=== PATIENT | male | born 1980 ===

== ENCOUNTER → 2019-04-19 17:14 | Outpatient (CLI) | payer OTHER, SELFPAY | PROVIDERS: Visit Provider Physician Assistant | DX: L02.91 Cutaneous abscess, unspecified (principal) | CPT/HCPCS: 87070; 87075; 87147; 87205 ==

== ENCOUNTER 2024-04-05 08:26 | Day surgery (SDC) | payer OTHER, SELFPAY ==
[2024-04-05] MEDS: LACTATED RINGERS 1,000 ML 100 ML IV (09:16)
[2024-04-05 09:18] VITALS: BP 116/74; PULSE 69; RESP 16; TEMP 36; O2SAT 97
--- NOTE | 2024-04-05 09:30 | PM.HP.1 ---
History of Present Illness History of Present Illness Date Patient Seen: 04/05/24 Time Patient Seen: 09:30 Chief complaint: Screening Colonoscopy Narrative: Isael is a 43-year-old man here for screening colonoscopy. He has never had a colonoscopy before. No known family history of colon cancer. [facility] Social History Smoking Status: Never smoker alcohol intake: current Meds Home Medications and Allergies Home Medications Medication Instructions Recorded Confirmed Type emtricitabine 200 mg-tenofovir 1 tab PO DAILY 04/19/19 04/19/19 History disoproxil fumarate 300 mg tablet (Truvada) mupirocin 2 % topical ointment 1 applic topical TID #30 grams 04/19/19 04/19/19 Rx peg 3350-sod sulf,ysjzs-czc-ltp 1,000 ml PO DIRECTED #2,000 mL 02/24/24 Rx 178.7-7.3-0.5-1.12-0.9 gram oral soln (Suflave) Allergies Allergy/AdvReac Type Severity Reaction Status Date / Time codeine AdvReac Unknown nausea Verified 04/05/24 09:12 Exam Vital Signs (past 8 hours): - 04/05/24 09:18 Temperature 96.8 F L Pulse Rate 69 Respiratory Rate 16 Blood Pressure 116/74 Pulse Oximetry 97 Oxygen Delivery Method Room Air Oxygen Delivery Method Room Air Const General: healthy appearing Resp Effort & Inspection: normal respiratory effort Assessment & Plan Assessment and plan (1) Colon cancer screening: Status: Acute Plan We reviewed the risks and benefits of colonoscopy for colon cancer screening and he would like to proceed. Time-Based Coding :: [TOTAL MINUTES] spent with patient and on the chart (including review of chart, obtaining history, exam, reviewing outside data, placing orders, documenting exam and treatment plan, and counseling patient) on [DATE].
--- NOTE | 2024-04-05 09:56 | PM.OP.COLON ---
Operative Date/Time/Diagnoses Date of procedure: 04/05/24 Time of procedure: 09:56 Pre-op diagnosis: Colon cancer screening Post-op diagnosis: same Procedure & Clinicians Study performed: Colonoscopy Same procedure as scheduled: Yes Surgeon: Yaron Cottrell Procedure Notes Procedure in detail: Surgeon: Yaron Cottrell MD Anesthesia: Bobbi Arias CRNA Procedure: The patient was brought to the endoscopy suite, placed in left lateral decubitus position. The patient was connected to monitoring devices. A time-out was performed. Sedation was administered. Once the patient was adequately sedated, a digital rectal exam was performed and was normal. The scope was then inserted and advanced to the cecum where the appendiceal orifice was identified and photographed. The scope was then slowly withdrawn over greater than 6 minutes. The mucosa was thoroughly inspected. No abnormalities were identified. The scope was retroflexed in the rectum. No abnormalities were seen. The scope was straightened and removed. The patient was awakened and brought to recovery. Scope withdrawal time: 6 minutes Sedation time: 11 minutes EBL: 0 Findings: Normal colon Post-procedure Recommendations: Colonoscopy in 10 years Disposition: PACU
[2024-04-05 09:57] VITALS: BP 99/66; PULSE 89; RESP 17; TEMP 36.6; O2SAT 96
[2024-04-05 10:02] VITALS: BP 100/69; PULSE 74; RESP 22; O2SAT 95
[2024-04-05 10:07] VITALS: BP 110/77; PULSE 76; RESP 18; TEMP 36.7; O2SAT 98
[2024-04-05 10:14] VITALS: BP 114/75; PULSE 75; RESP 18; TEMP 36.7; O2SAT 99
== END 2024-04-05 10:18 | disposition home or self-care (01) ==
PROVIDERS: Referring Provider Surgery; Visit Provider Surgery
PROC: 0DJD8ZZ Inspection of Lower Intestinal Tract, Via Natural or Artificial Opening Endoscopic (ICD-10-PCS; CPT 45378; principal; 2024-04-05 10:15)
DX: Z12.11 Encounter for screening for malignant neoplasm of colon (principal)
CPT/HCPCS: 45378; J2704